=== PATIENT | female | born 1960 | race African-American/Black ===

== ENCOUNTER → 2018-01-27 | Outpatient (CLI) | payer OTHER ==
[~2018-01-27] MED LIST: EPINEPHrine HCL (1:1000) 1 MG/ML VIAL ONE; EPINEPHrine HCL (1:1000) 30 MG/30 ML VIAL ONE; HYDR25TA5 PO; LISI-515 PO; MELO7.5T27 PO
[2018-01-27 11:53] LABS: HEMOGLOBIN 11.9 GM/DL (11.6-15.3); MEAN CELL VOLUME 69.9 FL (80.0-100.0); MEAN CORPUSCULAR HEMOGLOBIN 22.5 PG (27.0-34.0); MEAN CORPUSCULAR HGB CONC 32.2 % (32.0-36.0); MEAN PLATELET VOLUME 7.8 FL (7.0-11.0); PLATELET COUNT 346 TH/MM3 (150-450); RED BLOOD COUNT 5.28 MIL/MM3 (4.00-5.30); RED CELL DISTRIBUTION WIDTH 18.1 % (11.6-17.2); WHITE BLOOD COUNT 7.2 TH/MM3 (4.0-11.0)
--- NOTE | 2018-01-27 17:15 | MH ---
cc: Mike Goldstein MD DATE OF ADMISSION: 01/27/2018 HISTORY OF PRESENT ILLNESS: A 58-year-old with nasal obstruction, chronic sinusitis, and a left-sided maxillary polyp for biopsy, has had persistent nasal obstruction for years. PAST MEDICAL HISTORY: Unremarkable. PAST SURGICAL HISTORY: Unremarkable. REVIEW OF SYSTEMS: Unremarkable. FAMILY HISTORY: Unremarkable. SOCIAL HISTORY: Unremarkable. PHYSICAL EXAMINATION: GENERAL: A well appearing patient, no acute distress noted. HEENT: Reveals septal deviation, turbinate hypertrophy and mucopurulent secretion. LUNGS: Clear. HEART: Regular rate and rhythm. ABDOMEN: Soft and nontender. EXTREMITIES: Without cyanosis, clubbing or edema. NEUROLOGIC: Alert and oriented. Nonfocal neurologic exam. IMPRESSION AND PLAN: The patient with chronic sinusitis and nasal obstruction for nasal sinus surgery. Instructed method of surgery and possible complications including anesthetic complication, cardiac difficulty, pulmonary difficulty, stroke or even ; surgical complication, bleeding, infection, risk of injury to orbit including blindness and diplopia, injury to the septum with septal deviation persistent, septal perforation, epistaxis, packing requirement. The patient appeared to agree, except and understand above-mentioned risks and benefits of this and no guarantees or warranties regarding outcome were given. We will therefore proceed with surgery. MD HECTOR Brito/KD , 04:54 PM , 05:14 PM
--- NOTE | 2018-01-28 19:16 | EKG ---
Date Performed: 01/27/2018 Time Performed: 11:52:55 PTAGE: 58 years EKG: Sinus rhythm NORMAL ECG Since the PREVIOUS TRACING , no significant change noted PREVIOUS TRACIN02/22/13 @11.12 DOCTOR: Germán Durant Interpretating Date/Time 01/28/2018 19:27:53
== END ==
LOC: CPRE 11:21
PROVIDERS: ATTEND Specialist
DX: Z01.812 Encounter for preprocedural laboratory examination (principal); Z01.810 Encounter for preprocedural cardiovascular examination; J34.3 Hypertrophy of nasal turbinates; J34.2 Deviated nasal septum; J32.0 Chronic maxillary sinusitis
CPT/HCPCS: 36415; 85027; 93005; J0171

== ENCOUNTER → 2018-01-28 | Day surgery (SDC) | payer OTHER ==
[~2018-01-28] VITALS: Ht 172.7 cm; Wt 105.6 kg
[~2018-01-28] MED LIST changes: +ACETAMINOPHEN 1000 MG/100 ML 100 ML IV ONE; +ACETAMINOPHEN/HYDROcodone 325 MG/7.5 MG TAB PO PRN; +CHLORHEXIDINE GLUCONATE 2 % 1 PACK (2 CLOTHS) TOPICAL PRN; +DEXAMETHASONE SOD PHOS 4 MG/ML VIAL IV ONE; +DO NOT ADM ANY ANTICOAGULANT DRUGS PRN; +GLYCOPYRROLATE 1 MG/5 ML SYRINGE IV PUSH ONE; +LABETALOL HCL 100 MG/20 ML VIAL IV ONE; +LACTATED RINGER'S 1000 ML IV PRN; +LIDOCAINE 1%/EPINEPHrine 1:100,000 SOLN 20 ML VIAL ONE; +LIDOCAINE HCL 1% PF 5 ML SYRINGE OTHER ONE; -LISI-515 PO; -MELO7.5T27 PO; +METOPROLOL TARTRATE 25 MG TAB PO PRN; +MORPHINE SULFATE 4 MG/ML INJ IV PUSH PRN; +NEOSTIGMINE 5 MG/5 ML SYRINGE IV PUSH ONE; +ONDANSETRON HCL 4 MG/2 ML VIAL IV ONE; +ONDANSETRON HCL 4 MG/2 ML VIAL IV PUSH PRN; +POVIDONE IODINE 5% (ANTISEPSIS KIT) 4 APPLICATIONS EACH NARE PRN; +PROPOFOL 200 MG/20 ML AMP IV ONE; +ROCURONIUM INJ 50 MG/5 ML SYRINGE IV PUSH ONE; +SODIUM CHLORID 0.9% 500 ML IV PRN; +SUGAMMADEX SODIUM 200 MG/2 ML VIAL IV PUSH ONE; +fentaNYL CITRATE 250 MCG/5 ML AMP ONE
[2018-01-28 10:00] VITALS: BP 143/67; PULSE 62; RESP 18; TEMP 96.6; O2SAT 96
--- NOTE | 2018-01-29 07:55 | MP ---
cc: Mike Goldstein MD DATE OF OPERATION: 01/28/2018 PREOPERATIVE DIAGNOSES: 1. Nasal obstruction. 2. Chronic sinusitis. 3. Maxillary sinus mass. POSTOPERATIVE DIAGNOSES: 1. Nasal obstruction. 2. Chronic sinusitis. 3. Maxillary sinus mass. PROCEDURE PERFORMED: 1. Open septal reconstruction. 2. Left endoscopic maxillary antrostomy with removal of tissue. 3. Right endoscopic maxillary antrostomy. 4. Left and right inferior turbinectomy submucous resection. ANESTHESIA: General. ESTIMATED BLOOD LOSS: 25 mL. COMPLICATIONS: None. OPERATING SURGEON: Mike Goldstein MD DESCRIPTION OF PROCEDURE: Prepped and draped in usual fashion; 1% Xylocaine with 1:100,000 epinephrine injected into the nasal septum, inferior turbinates, middle meatus bilaterally; 1:100,000 adrenaline-soaked pledgets were placed and then removed. Under endoscopic visualization, the natural antrostomy was identified and enlarged with a curved suction on the left side and the giraffe forceps was used to enter the left maxillary sinus and decompress a polyp and take tissue out of the maxillary sinus. This tissue was sent for pathological analysis. Using a curved suction under endoscopic visualization on the right side, the natural antrostomy was identified and enlarged. The mucoperichondrial incision was made on the left side of the nose. Mucoperichondrial flap was elevated. The fractured nasal septum bone and cartilage was isolated with a long speculum and removed, improving the nasal airway and reducing the nasal fracture. Once this was achieved, the mucoperichondrial flap was reapproximated using the Coblator at power level 4, inferior turbinate removal was performed submucosally, sparing mucosa, improving the nasal airway. No active bleeding was noted. Bilateral NasoPore dressing placed. The patient tolerated the procedure well. MD HECTOR Brito/KD , 07:37 AM , 07:53 AM
== END | disposition home or self-care (01) ==
LOC: HSDC 05:27
PROVIDERS: ATTEND Specialist
DX: J34.89 Other specified disorders of nose and nasal sinuses (principal); J01.00 Acute maxillary sinusitis, unspecified; J32.0 Chronic maxillary sinusitis; S02.2XXA Fracture of nasal bones, initial encounter for closed fracture; I10 Essential (primary) hypertension
CPT/HCPCS: 00160; 30140; 30520; 31267; 88305; J0131; J0171; J1100; J2405; J2710; J3010; J7120